=== PATIENT | female | born 1945 | race Caucasian/White ===

== ENCOUNTER → 2017-09-30 | Outpatient (CLI) | payer OTHER ==
[~2017-09-30] MED LIST: ADULT LOW DOSE81 MG PO; AMLODIPINE BESYL5 MG PO; AUGMENTIN 875875 MG PO; COUMADIN7.5 MG PO; DEXILANT60 MG PO; DOCUSATE SODIU100 MG PO; FLOMAX PO; FLUZONE 2045 MCG/011; HYDROCODON-ACE1 EAC8 PO; IMDUR 60 MG TAB60 MG; LASIX 40 MG TAB40 MG OR; LISINOPRIL10 MG PO; LOPRESSOR 50 MG50 M1 PO; MULTIVITAMINS PO; NIASPAN 500 MG500 M1 PO; NORCO 5-325 TA1 EACH PO; PERCOCET 5-3251 EACH PO; PERCOCET 7.5-51 EACH PO; PNEUMOVAX25 MCG/0.5; POTASSIUM20 OR; PRILOSEC 20 MG20 MG PO; SORINE 80 MG TA80 M1 PO; TOPROL XL50 MG PO; VITAMIN C; VITAMINC500 PO; VYTORIN 10-401 EACH PO; ZOFRAN ODT4 MG PO; ZOFRAN4 MG PO
[2017-09-30 12:32] LABS: ABSOLUTE BASOPHILS 0.1 thou/uL (0.0-0.2); ABSOLUTE EOSINOPHILS 0.1 thou/uL (0.0-0.7); ABSOLUTE LYMPHOCYTES 1.7 thou/uL (0.8-5.3); ABSOLUTE MONOCYTES 0.8 thou/uL (0.0-1.2); ABSOLUTE NEUTROPHILS 9.1 thou/uL (1.6-8.1); BASOPHILS 1.2 %; EOSINOPHILS 0.6 %; HEMOGLOBIN 13.9 gm/dL (12.0-15.0); LYMPHOCYTES 14.8 %; MCH 29.4 pg (26.0-34.0); MCHC 33.2 g/dL (28.0-37.0); MCV 88.7 fL (80.0-100.0); MONOCYTES 6.5 %; MPV 8.5 fl. (7.2-11.1); NUCLEATED RBCS 0 /100WBC; PLATELET COUNT* 239 thou/uL (150-400); POLYS 76.9 %; RBC 4.74 mil/uL (4.20-5.00); RDW-CV 13.7 % (10.5-14.5); WBC 11.9 thou/uL (4.0-11.0)
[2017-09-30 13:34] LABS: ESR (SEDRATE) 9 mm/hr (0-30)
[2017-10-03 12:05] LABS: ANA INTERPRETATION Negative (Negative)
== END ==
LOC: M.LAB 11:52
DX: M79.641 Pain in right hand (principal); R22.31 Localized swelling, mass and lump, right upper limb

== ENCOUNTER → 2019-04-25 | Outpatient (CLI) | payer OTHER ==
[2019-04-25 10:50] LABS: INR 1.8; PROTIME 18.3 Seconds (9.20-11.50)
== END ==
LOC: M.LAB 10:28
PROVIDERS: Internal Medicine Cardiovascular Disease
DX: I48.91 Unspecified atrial fibrillation (principal); Z95.2 Presence of prosthetic heart valve